=== PATIENT | female | born 1930 | race Caucasian/White ===

== ENCOUNTER 2016-05-25 07:18 | Day surgery (SDC) | payer MEDICARE, OTHER ==
[~2016-05-25] VITALS: Ht 154.9 cm; Wt 78.0 kg
[2016-05-25] VITALS (17 sets, daily range): BP systolic 119–145; BP diastolic 59–81; PULSE 66–94; RESP 6–19; O2SAT 91–98
[~2016-05-25 07:18] MED LIST: AMLO10TA5 PO; ATRV10T PO; CeFAZolin Inj 2 GM in IV Premix 1 EACH IV ONE; FLUT16SP NS; GABA600T PO; LEVO100T97 PO; MELO-253 PO; OXYC1TAB24 PO
[2016-05-25] MEDS ORDERED: Dexamethasone 4 mg/mL Inj ONE (07:19)
[2016-05-25] MEDS ORDERED: Propofol 10,000 mCg/mL 20 mL Inj ONE (07:19)
[2016-05-25] MEDS ORDERED: Glycopyrrolate 0.2 mg/mL 5 mL Inj ONE (07:19)
[2016-05-25] MEDS ORDERED: Neostigmine 1 mg/mL 5 mL Inj ONE (07:19)
[2016-05-25] MEDS ORDERED: Ondansetron 2 mg/mL 2 mL Inj ONE (07:19)
[2016-05-25] MEDS ORDERED: fentaNYL-PF 50 mCg/mL 2 mL Inj ONE (07:19)
[2016-05-25] MEDS ORDERED: MetoCLOpramide 5 mg/mL 2 mL Inj ONE (07:19)
[2016-05-25] MEDS ORDERED: Rocuronium 10 mg/mL 5 mL Inj ONE (07:19)
[2016-05-25] MEDS: Lactated Ringer's 1,000 ML IV SCH ×2 (08:10→10:27)
[2016-05-25] MEDS ORDERED: Lactated Ringer's 1,000 ML IV SCH (10:26)
[2016-05-25] MEDS ORDERED: Lactated Ringer's 500 ML IV PRN (10:26)
[2016-05-25] MEDS ORDERED: Lidocaine 2%-Epi 1:100,000 20 mL Inj SUBQ ONE (10:26)
--- NOTE | 2016-05-25 10:29 | PCM.HPANE ---
Patient Data Surgeon Admitting Provider: Attending Provider:Vinod Alston MD Primary Care Physician:Alina Valentine MD Other Provider:Daphne Bar Anesthesia Reason for Visit Complete Tear Of Right Rotator Cuff Ht/WT & BMI Height (Feet): 5 Height (Inches): 1.00 Weight (Kilograms): 78.000 Body Mass Index 32.00 Allergies Coded Allergies: No Known Allergies (Verified , 05/21/09) Past Anesthesia History Anesthesia History: Denies:: Anesthesia Reactions Diabetes History Hx Diabetes?: No MRSA MRSA: No Medications Hypertension Medication: Yes Home Meds Incl Beta Cassy: No Reported Medications Levothyroxine (Synthroid)100 Mcg [id number] Mcg PO DAILY Ref 0 05/23/16 oxyCODONE-Acetaminophen 5-325 mg 1 Each Tablet0.5-1 Tab PO Q8H PRN For Pain Ref 0 05/23/16 Amlodipine (Norvasc)10 Mg [id number] Mg PO DAILY Ref 0 05/23/16 Gabapentin (Neurontin)600 Mg Smsdsb834-9,200 Mg PO TID 30 Days Ref 0 05/23/16 Meloxicam 15 Mg Cadvvv39 Mg PO DAILY 30 Days Ref 0 05/23/16 Atorvastatin (Lipitor)10 Mg Tab10 Mg PO DAILY Ref 0 05/23/16 Fluticasone Propionate (Fluticasone Propionate Nasal)16 Gm [place].susp2 [place] NS BID #16 GM Ref 0 05/23/16 Discontinued Reported Medications AmLODIPine-Expunged Drug, Do Not Renew! 10 Mg [id number] Mg PO DAILY Ref 0 05/21/09 Levothyroxine-Expunged Drug, Do Not Renew! 200 Mcg/5 Ml Ttmi265 Mcg PO DAILY Ref 0 05/21/09 History History of ENT Problems?: Yes HEENT History: Positive for:: Sinus Problem Denies:: Cataracts Dysphagia Hx of Heart Problems?: Yes Cardiovascular History: Positive for:: Heart Murmur Hypertension Denies:: Cardiac Surgery Chest Pain Congestive Heart Failure Edema Irregular Heartbeat Pacemaker Thrombophlebitis Hx of Respiratory Problem?: No Respiratory History: Denies:: Asthma COPD Chest Surgery Dyspnea Emphysema Hemoptysis Oxygen Administration Pneumonia Tuberculosis Use of C-PAP Machine Hx Neurologic Problems?: Yes Neurological History: Positive for:: Headaches (Migraines in the past) Denies:: CVA Dizziness Parkinson's Disease Seizures Hx of GI Problems?: Yes Gastrointestinal History: Positive for:: Diverticulitis Gall Bladder Disease (removed) Denies:: Gastroesphageal Reflux Gastrointestinal Bleeding Heartburn Hepatitis Hiatal Hernia Rectal Bleeding Hx of Problems?: Yes Genitourinary History: Positive for:: Kidney Stones Denies:: HX of Hemodialysis Urinary Tract Infection (past hx of not current ) HX of Peritoneal Dialysis: No Other Pertinent History: 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 Skin History: Denies:: History Skin Disorders? Pressure Ulcers Hx Musculoskeletal Problems?: Yes Musculoskeletal History: Positive for:: Back Injury Joint Replacement (right total knee) Musculoskeletal Trauma (right shoulder current admission problem) Osteoarthritis Hx of Psycho/Social Problems?: Yes Psycho Social History: Positive for:: Anxiety Hx Depression Denies:: Bipolar Disorder Suicide Attempt Hx Surgeries?: Yes (Toe tendon, bone spurs, Varicose veins stripped,Lucila, partial left nephrec) Hx Any Other Health Problems?: Yes Other History: Positive for:: Cancer (hx BCC, melanoma) Hospitalization (With surgeries. ) Thyroid Disease (hypothyroid) Denies:: Endocrine Disease History Blood Transfusions: Denies:: Blood Transfusions Hx Diabetes: No Hx Alcohol Use: NoHx Substance Use: NoHave You Smoked inLast 12 mo: No Stop/Bang S-Snoring: Do You Snore Loudly: No T-Tired: feel tired, fatigued: No O-Obsered: Observed not breath: No P-Blood Pressure: treated: Yes B- Body Mass Index > 35 kg/m2: No A- Age over 50: Yes N- Neck Large Circumference: No G- Gender Male: No MARGE Total Score: 2 Risk Assessment Category Category 1A: Patient has history of documented sleep apnea, and HAS NOT received any narcotic, sedative or anesthesia administration during this stay. Category 1B: Patient has history of documented sleep apnea, and HAS received any narcotic , sedative or anesthesia administration during this stay Category 2: Patient has SUSPECTED Obstructive Sleep Apnea, and HAS received any narcotic , sedative or anesthesia administration during this stay. Category 3: Patient has SUSPECTED Obstructive Sleep Apnea and HAS NOT received narcotic, sedative or anesthesia administration during this stay. Category 4: Outpatient in Procedural Areas with known sleep apnea or who screen positive for High Risk via the STOP/BANG questionnaire. Exam Exam Vital Signs Vital Signs Date Time Temp Pulse Resp B/P Pulse Ox O2 Delivery O2 Flow Rate FiO2 05/25/16 07:47 36.2 66 18 141/81 97 Room Air General Appearance: Alert, Oriented X3, Cooperative, No Acute Distress HEENT/AIRWAY: MP 2, Neck Movement (FROM), Mouth Opening (3 FBMO) Lungs: Clear to Auscultation, Normal Air Movement Heart: Exam Unremarkable, Regular Rate/Rhythm, No Murmurs/Rubs/Gallops Meds/Labs/Diagnostics Admission Meds Current Medications Lactated Ringer's (Lr) 1,000 ml @ 120 mls/hr Q8H20M IV Last administered on t 08:10; Start 05/25/16 at 05:00; Stop 05/25/16 at 13:19 Plan Impression Patient chart reviewed, patient interviewed and anesthestic plan with risks, benefits, and alternatives discussed, and informed consent obtained. NPO Status: mn ASA Physical Status: ASA2 Mod Systemic Disease Anesthetic Plan: GA, Regional Block (Right supraclavicular block for postoperative pain relief risks of bleeding, infection, permanent nerve damage, SOB discussed) Bene/Risks/Altern/Consents: Yes HP Complete Prior to Induction: Yes Vinod Burns MD May 25, 2016 08:21
[2016-05-25] MEDS ORDERED: hydrALAZINE 20 mg/mL Inj IVPUSH PRN (10:30)
[2016-05-25] MEDS ORDERED: fentaNYL-PF 50 mCg/mL 2 mL Inj IVPUSH PRN (10:30)
[2016-05-25] MEDS ORDERED: MetoCLOpramide 5 mg/mL 2 mL Inj IVPUSH PRN (10:30)
[2016-05-25] MEDS ORDERED: Ondansetron 2 mg/mL 2 mL Inj IVPUSH PRN (10:30)
[2016-05-25] MEDS ORDERED: Atropine 0.4 mg/mL Inj IVPUSH PRN (10:30)
[2016-05-25] MEDS ORDERED: EPHEDrine Sulfate 50 mg/mL Inj IVPUSH PRN (10:30)
[2016-05-25] MEDS ORDERED: Labetalol 5 mg/mL 4 mL Inj IV PRN (10:30)
[2016-05-25] MEDS ORDERED: HYDROmorphone 1 mg/mL Inj IVPUSH PRN (10:30)
[2016-05-25] MEDS ORDERED: Phenylephrine 10,000 mCg/mL Inj IVPUSH PRN (10:30)
--- NOTE | 2016-05-25 11:29 | PCM.ORTHOB ---
Immediate Operative Note Date of Service: May 25, 2016 Pre Operative Diagnosis Right shoulder rotator cuff tear Post Operative Diagnosis Same Procedure Right shoulder open rotator cuff repair and acromioplasty Surgeon Surgeon: Vinod Alston MD Assistants: Trevon Ramirez PA-C Findings Right shoulder full-thickness tear of supraspinatus tendon 2 cm in transverse dimension with 2 cm of medial retraction. Torn tendon had the appearance of chronic tendinitis but was amenable to tendon to bone repair. Tendon to bone repair accomplished using 2 Arthrex PEEK SwivelLock 4.75 x 19.1 mm suture anchors with fiber tape and FiberWire in double row technique into the greater tuberosity. Repair assessed to be sound without undue tension or gapping. Repair site did not impinge on the acromial undersurface with intraoperative range of motion. Proximal biceps tendon not noted and assessed to be chronically ruptured distal retraction. Visualized humeral head articular surface satisfactory. Grafts, Implants: Implants-See Implant Record Complications There were no periprocedural complications identified. Condition Stable Anesthetic Administered: GA, Regional Block Drains: None Catheters: None Output, Estimated Blood Loss: 10 Blood Admin during surgery: No Surgical Cast or Splint: None, Shoulder Immobilizer Surgical Specimen Removed: No Surgical Specimen sent to Path: No Post Operative Plan The patient will discharge home when surgical day care protocol is met. The patient will come out of her right shoulder sling starting postop day #1 to begin right shoulder pendulum, right elbow, wrist and hand range of motion exercises at least 3 times daily. Patient will be seen in the orthopedic office for routine wound check on her after postop day #5. Skin suture can be removed on or after postoperative day #12. The patient will avoid any strenuous right shoulder activities for the next 6 weeks postop. Vinod Alston MD May 25, 2016 11:29
[2016-05-25] MEDS ORDERED: oxyCODONE-Acetamin 5-325 mg Tablet PO PRN (11:30)
--- NOTE | 2016-05-25 11:38 | PCM.ORTHOP ---
Orthopedic Operative Report Date of Service: May 25, 2016 Pre Operative Diagnosis Right shoulder rotator cuff tear Post Operative Diagnosis Same Procedure Right shoulder open rotator cuff repair and acromioplasty Surgeon Surgeon: Vinod Alston MD Assistants: Trevon Ramirez PA-C Indication for Procedure The patient is an 86-year-old right-hand dominant woman with a sudden onset of right shoulder pain 04/11/2016. Her right shoulder pain associated with right shoulder weakness particularly with overhead and reaching activities. There is no history of antecedent trauma or change in activities. Preoperative exam of the patient's right shoulder reveals limited forward flexion and weak forward flexion as well as a positive impingement sign. Preoperative MRI of the patient 's right shoulder confirms a large full-thickness tear of the supraspinatus tendon with medial retraction. The patient has not gotten relief of her right shoulder symptoms through the use of anti-inflammatory agents and activity modification. Patient presents for right shoulder open rotator cuff repair and acromioplasty. The skilled assistance of a physician's catering assistant, Trevon Ramirez PA-C, was necessary for the successful completion of this case. The PA was essential for the proper positioning, manipulation of instruments, proper exposure, manipulation of tissues and wound closure. Findings Right shoulder full-thickness tear of supraspinatus tendon 2 cm in transverse dimension with 2 cm of medial retraction. Torn tendon had the appearance of chronic tendinitis but was amenable to tendon to bone repair. Tendon to bone repair accomplished using 2 Arthrex PEEK SwivelLock 4.75 x 19.1 mm suture anchors with fiber tape and FiberWire in double row technique into the greater tuberosity. Repair assessed to be sound without undue tension or gapping. Repair site did not impinge on the acromial undersurface with intraoperative range of motion. Proximal biceps tendon not noted and assessed to be chronically ruptured distal retraction. Visualized humeral head articular surface satisfactory. Details of Procedure Patient was brought to the OR where she received a right upper extremity block performed by the anesthesia service. The patient was then given a general anesthetic and placed in the beachchair position. The right shoulder girdle and upper extremity were prepped and draped in usual sterile fashion. A slightly oblique anterior lateral saber type incision was performed just lateral to the lateral edge of the acromion and taken down through subcutaneous tissues after infiltrating the tissues with 2% lidocaine with epinephrine. The deltoid was split longitudinally in direction of its fibers between the middle and anterior one third heads from the lateral edge of the acromion no further distally than 4 cm. We deepened through the deltoid and through the deep deltoid fascia where we encountered a weston of synovial fluid and a thickened subacromial bursa. We confirmed the presence of a type 1-2 acromion and a 2 cm wide and 2 cm retracted full-thickness tear of the supraspinatus tendon. Long head of the biceps tendon was not visualized in the wound. Minimal articular surface degenerative changes. Torn tendon edges had a chronic tendinosis appearance. We proceeded with our acromioplasty using metacarpal osteotomes and a small sagittal saw to remove the anterolateral wedge of the lateral acromial undersurface. The undersurface of the acromion was then smoothed with the power rasp and the wound was thoroughly irrigated. We proceeded with our rotator cuff repair using two Arthrex PEEK SwivelLock bone suture anchors using the double row technique placing one suture anchor medially at the mid tear site paralleling and just distal to the humeral head articular surface. The second suture anchor was placed 1/2 cm distally in the greater tuberosity. We used the Arthrex scorpion instrument to pass the FiberWire and fiber tape sutures through the torn medial tendon edge and then the torn and retracted tendon edge was brought laterally and anchored to the greater tuberosity with the second bone suture anchor. Excess suture and fiber tape were removed. The repair was assessed to be satisfactory without any gapping or undue tension. The repair site did not impinge on the acromial undersurface with intraoperative range of motion. We thoroughly irrigated the wound. We closed the deltoid split with interrupted [id number] #1 Vicryl sutures. 2-0 Vicryl's used to close the subcutaneous tissues. 3-0 Prolene was used in a subcuticular fashion to close the skin. Xeroform and dry gauze dressings were applied. Patient was placed into a right shoulder sling and taken back to PACU in stable satisfactory condition. There were no complications. Patient tolerated the procedure well. Grafts, Implants: Implants-See Implant Record Complications There were no periprocedural complications identified. Condition Stable Anesthetic Administered: GA, Regional Block Drains: None Catheters: None Output, Estimated Blood Loss: 10 Blood Admin during surgery: No Surgical Cast or Splint: None, Shoulder Immobilizer Surgical Specimen Removed: No Specimen sent to Pathology: No Post Operative Plan The patient will discharge home when surgical day care protocol is met. The patient will come out of her right shoulder sling starting postop day #1 to begin right shoulder pendulum, right elbow, wrist and hand range of motion exercises at least 3 times daily. Patient will be seen in the orthopedic office for routine wound check on her after postop day #5. Skin suture can be removed on or after postoperative day #12. The patient will avoid any strenuous right shoulder activities for the next 6 weeks postop. copies to: Alina Valentine MD; Vinod Alston MD, Michael G.E MD May 25, 2016 11:38
[2016-05-25] MEDS ORDERED: Albuterol-Ipratropium 3 mL Inhalation Solution ONE (12:46)
--- NOTE | 2016-05-25 16:12 | PCM.ANEP2 ---
Post Anesthesia Evaluation ASA/CMS Post Anesthesia VS in Patient's Normal Range?: Yes Resp Stable; Airway Patent?: Yes CV Function & Hydration Stable: Yes Mental Status Recovered?: Yes Pain control Satisfactory?: Yes N/V Control Satisfactory?: Yes Vinod Burns MD May 25, 2016 16:12
--- NOTE | 2016-05-25 16:12 | PCM.ANEP1 ---
Post Anesthesia Phase 1 PACU Phase 1 Assessment Date of Service: May 25, 2016 Vital Signs Vital Signs Date Time Temp Pulse Resp B/P Pulse Ox O2 Delivery O2 Flow Rate FiO2 05/25/16 15:09 91 Room Air 05/25/16 14:50 93 Nasal Cannula 1 05/25/16 13:36 78 16 135/59 92 Nasal Cannula 3 05/25/16 12:40 75 16 119/70 94 Nasal Cannula 3 05/25/16 12:30 77 15 133/63 95 Nasal Cannula 4 05/25/16 12:20 81 17 137/63 94 Simple Mask 10 05/25/16 12:10 81 12 135/70 93 Simple Mask 10 05/25/16 12:05 84 16 139/66 91 Nasal Cannula 4 05/25/16 12:00 82 13 134/68 93 Nasal Cannula 4 05/25/16 11:55 87 16 128/70 92 Nasal Cannula 3 05/25/16 11:50 35.8 88 17 142/66 92 Nasal Cannula 3 05/25/16 11:44 91 17 140/70 93 Nasal Cannula 3 05/25/16 11:40 92 19 139/70 93 Nasal Cannula 3 05/25/16 11:35 94 19 137/71 92 Nasal Cannula 2 05/25/16 11:30 91 16 145/74 98 Simple Mask 8 05/25/16 11:27 36.1 87 15 137/72 97 Simple Mask 8 Anesthetic Administered: GA, Regional Block Level of Alertness: Awake, talking BUTLER's with Equal Strength: Yes (except for distribution of right arm block) Pain: No Nausea or Vomiting: No Oxygen Delivery: Room Air Lungs: Clear to Auscultation, Normal Air Movement Dermatome Level: Full Sensation (except for distribution of right arm block) Vinod Burns MD May 25, 2016 16:12
== END 2016-05-25 23:59 | disposition home or self-care (01) ==
LOC: SAS 07:18
PROVIDERS: ATTEND Orthopaedic Surgery
DX: M75.121 Complete rotator cuff tear or rupture of right shoulder, not specified as traumatic (principal); M75.21 Bicipital tendinitis, right shoulder; I10 Essential (primary) hypertension; E03.9 Hypothyroidism, unspecified; Z96.651 Presence of right artificial knee joint
CPT/HCPCS: 23420; C1713; J0690; J1100; J2250; J2405; J2710; J2765; J3010; J7120; J7620